=== PATIENT | female | born 1985 | race Caucasian/White ===

== ENCOUNTER → 2024-07-08 | Outpatient (CLI) | payer OTHER ==
--- NOTE | 2024-07-08 15:57 | CA ---
Transthoracic Echo Report Name: Jada Sotelo Age: 38 Gender: F : 1985 Exam Date: 07/08/2024 14:11 Exam Location: [facility] Ht (in): 67 Wt (lb): 180 Ordering Physician: Trini Edouard MD Attending/Referring Phys: Keke Patel [facility] [employer]utter In Damaris Ross RDCS Procedure CPT: Indications: R94.31 ABNORMAL ELECTROCARDIOGRAM Cardiac Hx: Technical Quality: Fair Contrast 1: Total Dose (mL): Contrast 2: Total Dose (mL): MEASUREMENTS (Male / Female) Normal Values 2D ECHO LV Diastolic Diameter PLAX 4.6 cm 4.2 - 5.9 / 3.9 - 5.3 cm LV Systolic Diameter PLAX 2.7 cm IVS Diastolic Thickness 1.0 cm 0.6 - 1.0 / 0.6 - 0.9 cm LVPW Diastolic Thickness 0.9 cm 0.6 - 1.0 / 0.6 - 0.9 cm LV Relative Wall Thickness 0.4 RV Internal Dim ED PLAX 1.5 cm LA Systolic Diameter LX 3.1 cm 3.0 - 4.0 / 2.7 - 3.8 cm LV Diastolic Volume MOD BP 60.2 cm??? 67 - 155 / 56 - 104 cm??? LV Systolic Volume MOD BP 17.8 cm??? 22 - 58 / 19 - 49 cm??? LV Ejection Fraction MOD BP 70.4 % >= 55 % LV Cardiac Index MOD BP 2071.9 cm???/min???m??? LV Diastolic Volume MOD 4C 57.5 cm??? LV Systolic Volume MOD 4C 17.0 cm??? LV Ejection Fraction MOD 4C 70.5 % LV Cardiac Index MOD 4C 1981.7 cm???/min???m??? LV Diastolic Length 4C 6.7 cm LV Systolic Length 4C 5.3 cm LV Diastolic Volume MOD 2C 63.0 cm??? LV Systolic Volume MOD 2C 18.8 cm??? LV Ejection Fraction MOD 2C 70.2 % LV Cardiac Index MOD 2C 2163.3 cm???/min???m??? LV Diastolic Length 2C 6.7 cm LV Systolic Length 2C 5.3 cm M-MODE Aortic Root Diameter MM 3.0 cm LA Systolic Diameter MM 2.7 cm LA Ao Ratio MM 0.9 AV Cusp Separation MM 1.9 cm DOPPLER Mitral E Point Velocity 95.0 cm/s Mitral A Point Velocity 112.3 cm/s Mitral E to A Ratio 0.8 MV Deceleration Time 267.9 ms MV E' Velocity 7.3 cm/s Mitral E to MV E' Ratio 13.0 TR Peak Velocity 240.5 cm/s TR Peak Gradient 23.1 mmHg Right Ventricular Systolic Press 28.1 mmHg FINDINGS Left Ventricle Left ventricular ejection fraction is estimated at 55-60 %. Normal left ventricular systolic function with no obvious regional wall motion abnormalities. Left ventricular cavity size normal. Right Ventricle Normal right ventricular size and function. Right ventricular systolic pressure within normal limits. Right Atrium Normal right atrial size. Left Atrium Normal left atrial size. Mitral Valve Structurally normal mitral valve. Trace mitral regurgitation. No mitral stenosis. Aortic Valve Trileaflet aortic valve. No aortic valve stenosis or regurgitation. Tricuspid Valve Structurally normal tricuspid valve. No tricuspid stenosis. Trace to mild tricuspid regurgitation. Pulmonic Valve Structurally normal pulmonic valve. No pulmonic stenosis. Pericardium No pericardial or pleural effusion. Aorta Normal size aortic root and proximal ascending aorta. CONCLUSIONS 1. Normal left ventricular size and systolic function 2. Trace mitral with trace to mild tricuspid regurgitation and no evidence of pulmonary hypertension Previewed by: Dr. Jane Carney MD (Electronically Signed) Final Date: 08 July 2024 15:56
== END | disposition home or self-care (01) ==
LOC: RADECHMAIN 14:05
PROVIDERS: ATTEND Family Medicine
DX: I07.1 Rheumatic tricuspid insufficiency (principal); R94.31 Abnormal electrocardiogram [ECG] [EKG]
CPT/HCPCS: 93306